=== PATIENT | female | born 1990 | race Caucasian/White ===

== ENCOUNTER → 2016-05-21 22:42 | Emergency (ER) | payer MEDICAID ==
[~2016-05-21 22:42] MED LIST: AIRET0.83 MG/ML IH; ALBUTEROL SULF8.5 GM IH; ALBUTEROL0.63 MG/3 IH; ALBUTEROL0.83 MG/ML INH; AMBIEN10 MG PO; AMBIEN5 MG PO; AMOXICILLIN500 M2 PO; CELEXA20 M2 PO; CIPRO HC OTIC S10 M1 EACH EAR; FLEXERIL5 MG PO; FLUCONAZOLE150 M1 PO; GEODON40 M1 PO; GEODON60 M1 PO; HALDOL DECA100 MG/ML IM; HYDROXYZINE HCL50 MG PO; IBUPROFEN200 M1 PO; LOPERAMIDE2 M2 PO; NAPROSYN500 MG PO; OMEPRAZOLE20 M2 PO; PREDNISONE20 MG PO; PROMETHAZINE HC25 M3 PO; PROZAC20 M3 PO; SYMBICORT 160-4.6 GM INH; SYMBICORT 16010.2 GM IH; TEGRETOL X100 MG/TAB PO; TOPAMAX25 M1 PO; TOPAMAX50 M3 PO; TRIHEXYPHENIDYL2 MG PO; TRILEPTAL150 M2 PO; VALIUM5 MG PO; VISTARIL50 M1 PO; WELLBUTRIN SR100 M1 PO; ZITHROMAX250MG Z-PAK PO; ZYPREXA2.5 M1 PO; ZYRTEC10 M4 PO; ZYRTEC10 M7 PO; [UNRECOGNIZED DRUG - OTHER] IM
== END ==
LOC: EDMED 22:42
DX: S66.211A Strain of extensor muscle, fascia and tendon of right thumb at wrist and hand level, initial encounter (principal); J45.909 Unspecified asthma, uncomplicated; G40.909 Epilepsy, unspecified, not intractable, without status epilepticus; Z79.899 Other long term (current) drug therapy; F17.200 Nicotine dependence, unspecified, uncomplicated; X58.XXXA Exposure to other specified factors, initial encounter; Y92.019 Unspecified place in single-family (private) house as the place of occurrence of the external cause

== ENCOUNTER 2016-08-12 20:26 | Emergency (ER) | payer MEDICAID ==
[~2016-08-12 20:26] MED LIST changes: -AMOXICILLIN500 M2 PO; -PROZAC20 M3 PO; -VISTARIL50 M1 PO; -ZYRTEC10 M7 PO
[2016-08-12] MEDS ORDERED: VISTARIL50 M1 PO (20:41)
[2016-08-12] MEDS ORDERED: PROZAC20 M3 PO (20:41)
[2016-08-12] MEDS ORDERED: AMOXICILLIN500 M2 PO (21:10)
[2016-08-12] MEDS ORDERED: ZYRTEC10 M7 PO (21:10)
== END 2016-08-12 21:38 ==
LOC: EDMED 20:26
DX: H66.91 Otitis media, unspecified, right ear (principal); J30.2 Other seasonal allergic rhinitis; J45.909 Unspecified asthma, uncomplicated; F20.9 Schizophrenia, unspecified; Z79.899 Other long term (current) drug therapy; F17.210 Nicotine dependence, cigarettes, uncomplicated